=== PATIENT | female | born 1945 | race Caucasian/White ===

== ENCOUNTER → 2017-12-09 | Outpatient (CLI) | payer MEDICARE, BC | LOC: MC.RAD 07:30 | DX: N63.20 Unspecified lump in the left breast, unspecified quadrant (principal) ==

== ENCOUNTER → 2017-12-12 | Outpatient (CLI) | payer MEDICARE, BC | LOC: MC.RAD 11:00 | DX: N63.20 Unspecified lump in the left breast, unspecified quadrant (principal) ==

== ENCOUNTER → 2018-12-11 | Outpatient (CLI) | payer MEDICARE, BC | LOC: MC.RAD 12:47 | DX: Z98.82 Breast implant status (principal); Z85.3 Personal history of malignant neoplasm of breast | CPT/HCPCS: G0279 ==

== ENCOUNTER → 2019-03-19 | Outpatient (CLI) | payer MEDICARE, BC | LOC: COL.RAD 10:25 | DX: Z01.812 Encounter for preprocedural laboratory examination (principal); I77.810 Thoracic aortic ectasia; Z85.3 Personal history of malignant neoplasm of breast; Z98.890 Other specified postprocedural states | CPT/HCPCS: Q9967 ==

== ENCOUNTER → 2021-03-25 | Outpatient (CLI) | payer MEDICARE, BC | LOC: COL.RAD 13:46 | DX: I71.2 Thoracic aortic aneurysm, without rupture (principal) | CPT/HCPCS: Q9967 ==